=== PATIENT | female | born 1980 | race Caucasian/White ===

== ENCOUNTER 2018-01-18 13:08 | Emergency (ER) | payer OTHER ==
[~2018-01-18] VITALS: Ht 170.2 cm; Wt 72.6 kg
[2018-01-18] MEDS ORDERED: KETO10TA2 PO (17:33)
[2018-01-18] MEDS ORDERED: CIPRO500 MG PO (17:33)
== END 2018-01-18 17:49 | disposition home or self-care (01) ==
LOC: ER 13:08
DX: B34.9 Viral infection, unspecified (principal); H66.91 Otitis media, unspecified, right ear; N39.0 Urinary tract infection, site not specified